=== PATIENT | male | born 1995 | race Caucasian/White ===

== ENCOUNTER 2019-09-12 09:38 | Emergency (ER) | payer OTHER ==
[2019-09-12] MEDS ORDERED: PROPARACAINE 0.5% OPHTH DROPS 15 ML RIGHTEYE STA (11:36)
--- NOTE | 2019-09-12 11:36 | ED Physician Documentation ---
PD HPI OPHTHO - Stated complaint Stated Complaint: OBJECT IN RT EYE - Chief complaint Chief Complaint: Heent - History obtained from History obtained from: Patient - History of Present Illness Timing - onset: Today Timing - details: Abrupt onset, Still present Location: Right Quality / character: Aching Associated symptoms: FB sensation. No: Photophobia, Decreased vision, Headache Contributing factors: FB (he was watching his daughter at home and noted abrupt onset of FB sensation in right eye. Not aware of object. No trauma per se. no chemical exposure. He washed out his eye but persists with FB sensation. Has some redness of eye now.). No: Exposed to conjunctivitis, Recent URI, UV light (welding etc), Wears contacts Similar symptoms before: Has not had sx before Recently seen: Not recently seen Review of Systems Constitutional: denies: Fever Eyes: reports: Irritation. denies: Loss of vision, Photophobia, Discharge Nose: denies: Rhinorrhea / runny nose, Congestion Throat: denies: Sore throat Respiratory: denies: Cough Skin: denies: Rash, Lesions PD PAST MEDICAL HISTORY - Past Medical History Past Medical History: No Cardiovascular: None Respiratory: None Neuro: None Endocrine/Autoimmune: None GI: None : None HEENT: None Psych: None Musculoskeletal: None Derm: None - Past Surgical History Past Surgical History: No - Present Medications Home Medications: Ambulatory Orders Medication Instructions Recorded Confirmed Hydrocodone/Acetaminophen [[place] 1 each PO Q6H PRN #10 tablet 09/12/19 5-325 Tablet] Ketorolac 0.45% Ophth Drops 1 each RIGHTEYE Q3H #1 bottle 09/12/19 [Acuvail] Neomycin Hay/Bacitra/Polymyxin 1 applic RIGHTEYE Q3H #3.5 09/12/19 [Travis-Polycin Eye Ointment] oint...g. - Allergies Allergies/Adverse Reactions: Allergies Allergy/AdvReac Type Severity Reaction Status Date / Time No Known Drug Allergies Allergy Verified 09/12/19 16:46 - Social History Does the pt smoke?: No Smoking Status: Never smoker Does the pt drink ETOH?: Yes Does the pt have substance abuse?: No - Immunizations Immunizations are current?: Yes - POLST Patient has POLST: No PD ED PE NORMAL - Vitals Vital signs reviewed: Yes - General General: Alert and oriented X 3, No acute distress, Well developed/nourished - HEENT HEENT: PERRL (not light sensitive. ), EOMI, Ears normal, Moist mucous membranes, Pharynx benign PD ED PE EXPANDED - Eyes Eyes: No eyelid FB (everted), Injected conj/sclera, Anterior chambers clear, Normal fundi. No: Eyelid swelling, Eyelid erythema, Exudate, Conj/sclera FB, Fluorescein uptake, Hyphema Results - Vitals Vitals: Vital Signs - 24 hr 09/12/19 09/12/19 10:38 12:07 Temperature 36.9 C 36.8 C Heart Rate 58 L 56 L Respiratory 16 16 Rate Blood Pressure 126/67 148/80 H O2 Saturation 99 100 Oxygen O2 Source Room air PD MEDICAL DECISION MAKING - ED course Complexity details: considered differential (presume some FB that he got out and has irritated conjunctiva now. No abrasions nor visible FB. He has already irrigated eye at home. No chemical exposure by history.), d/w patient Departure - Departure Disposition: 01 Home, Self Care Clinical Impression: Conjunctivitis Qualifiers: Conjunctivitis type: acute Acute conjunctivitis type: unspecified Laterality: right Qualified Code(s): H10.31 - Unspecified acute conjunctivitis, right eye Condition: Stable Record reviewed to determine appropriate education?: Yes Instructions: ED Conjunctivitis Nonspecific Comments: I do not see any foreign body or material in the eye still. There are no abrasions. I presume it is irritated from what had been in there and this should improve through the day. You can use some lubricating eyedrops available [id number] such as refresh for comfort. Tylenol or ibuprofen if needed for discomfort. Recheck if not improved over the next 1 to 2 days completely. Discharge Date/Time: 09/12/19 12:11
[2019-09-12] MEDS ORDERED: ERYTHROMYCIN OPHTH OINT 1 GM TUBE RIGHTEYE STA (12:01)
[2019-09-12 12:08] VITALS: BP 148/80
== END 2019-09-12 12:11 | disposition home or self-care (01) ==
LOC: ED 09:38
DX: H10.31 Unspecified acute conjunctivitis, right eye (principal)
CPT/HCPCS: 99282; 99283

== ENCOUNTER 2019-09-12 16:29 | Emergency (ER) | payer OTHER ==
[2019-09-12 18:21] VITALS: BP 145/89
--- NOTE | 2019-09-12 18:48 | ED Physician Documentation ---
PD HPI OPHTHO - Stated complaint Stated Complaint: RIGHT EYE PAIN - Chief complaint Chief Complaint: Heent - History obtained from History obtained from: Patient - History of Present Illness Timing - onset: Today (onset this morning of FB sensation right eye, had flushed it but still uncomfortable, and seen by me in ER this morning, without FB nor abrasion.) Timing - details: Abrupt onset, Still present (has persistent discomfort in eye through the day. Some increased redness. No discharge.) Location: Right Associated symptoms: Redness, Tearing, FB sensation, Other (denies pressure feeling of eye.). No: Discharge, Photophobia, Decreased vision Review of Systems Constitutional: denies: Fever Eyes: reports: Decreased vision (says blurry from eye watering), Irritation. denies: Loss of vision, Photophobia, Discharge Nose: denies: Rhinorrhea / runny nose, Congestion Throat: denies: Sore throat Respiratory: denies: Cough PD PAST MEDICAL HISTORY - Past Medical History Cardiovascular: None Respiratory: None Neuro: None Endocrine/Autoimmune: None GI: None : None HEENT: None Psych: None Musculoskeletal: None Derm: None - Past Surgical History Past Surgical History: No - Present Medications Home Medications: Ambulatory Orders Medication Instructions Recorded Confirmed Hydrocodone/Acetaminophen [[place] 1 each PO Q6H PRN #10 tablet 09/12/19 5-325 Tablet] Ketorolac 0.45% Ophth Drops 1 each RIGHTEYE Q3H #1 bottle 09/12/19 [Acuvail] Neomycin Hay/Bacitra/Polymyxin 1 applic RIGHTEYE Q3H #3.5 09/12/19 [Travis-Polycin Eye Ointment] oint...g. - Allergies Allergies/Adverse Reactions: Allergies Allergy/AdvReac Type Severity Reaction Status Date / Time No Known Drug Allergies Allergy Verified 09/12/19 16:46 - Social History Does the pt smoke?: No Smoking Status: Never smoker Does the pt drink ETOH?: Yes Does the pt have substance abuse?: No - Immunizations Immunizations are current?: Yes - POLST Patient has POLST: No PD ED PE NORMAL - Vitals Vital signs reviewed: Yes - General General: Alert and oriented X 3, Well developed/nourished, Other (squinting and holding right eye closed. ) - HEENT HEENT: Pharynx benign - Neck Neck: Supple, no meningeal sign, No adenopathy PD ED PE EXPANDED - Eyes Eyes: PERRL, EOMI, No eyelid FB (everted), Injected conj/sclera (increased hyperemia since this morning, and some increased conjunctival swelling lower aspect since this morning. No discharge. ), Anterior chambers clear, Normal fundi. No: Exudate, Conj/sclera FB, Fluorescein uptake Results - Vitals Vitals: Vital Signs - 24 hr 09/12/19 09/12/19 16:45 18:20 Temperature 37 C Heart Rate 62 65 Respiratory 18 16 Rate Blood Pressure 143/67 H 145/89 H O2 Saturation 96 99 Oxygen O2 Source Room air PD MEDICAL DECISION MAKING - ED course Complexity details: considered differential (still no FB nor dye uptake seen. He feels better with proparacaine, so c/w conunctival irritation. Not suspicious for glaucoma, nor iritis. Will add ocular NSAID and abx. [place] d/w patient Departure - Departure Disposition: 01 Home, Self Care Clinical Impression: Conjunctivitis Condition: Stable Follow-Up: [facility] [Provider Group] Prescriptions: Ketorolac 0.45% Ophth Drops [Acuvail] 1 each RIGHTEYE Q3H #1 bottle Neomycin Hay/Bacitra/Polymyxin [Travis-Polycin Eye Ointment] 1 applic RIGHTEYE Q3H #3.5 oint...g. Hydrocodone/Acetaminophen [[place] 5-325 Tablet] 1 each PO Q6H PRN #10 tablet PRN Reason: Pain Comments: We will add ketorolac anti-inflammatory eyedrops every 3 hours or so while awake and the neomycin antibiotic ointment every 3 hours or so as well. Use the drops first and then some ointment. Follow-up with wardrobe custodian in the next day or 2, call in the morning for an appointment acutely. Return if worsening. Ibuprofen nor hydrocodone if needed for pain. Forms: Activity restrictions Discharge Date/Time: 09/12/19 19:27
[2019-09-12] MEDS ORDERED: HYDROcod/ACETAM 5/325 MG TABLET PO STA (19:09)
== END 2019-09-12 19:27 | disposition home or self-care (01) ==
LOC: ED 16:29
DX: H10.9 Unspecified conjunctivitis (principal); H10.31 Unspecified acute conjunctivitis, right eye
CPT/HCPCS: 99282; 99283; A9270; J3490